=== PATIENT | female | born 1985 | race African-American/Black ===

== ENCOUNTER 2017-12-28 07:38 | Emergency (ER) | payer OTHER, SELFPAY ==
--- OUTSIDE RECORDS SUMMARY | 2017-12-28 07:41 | XMS REPORT | Clinical Summary ---
:1985 Author Organization [facility] Address [address] [place] [id number] Care Team Providers Name Role Phone Asked, No Pcp Primary Care Provider Unavailable Allergies No Known Allergies Current Medications Prescription Sig. Disp. Refills Start Date End Date Status Take 1 tablet by Active vit,[id number] 29 mouth daily. mg iron- 1 mg tablet per tablet Active Problems Not on file Encounters Date Type Specialty Care Team Description 12/14/2017 Hospital Encounter Obstetrics and Gynecology Pj Barajas MD after 12/27/2016 Social History Tobacco Use Types Packs/Day Years Used Date Former Smoker Quit: 07/19/2017 Smokeless Tobacco: Never Used Alcohol Use Drinks/Week oz/Week Comments No Currently Estimated Date of Delivery Comments Yes 04/25/2018 Based on Other Basis Sex Assigned at Date Recorded Not on file Last Filed Vital Signs Vital Sign Reading Time Taken Blood Pressure 112/59 12/14/2017 7:00 PM CDT Pulse 76 12/14/2017 7:00 PM CDT Temperature 37.4 C (99.3 F) 12/14/2017 7:00 PM CDT Respiratory Rate 16 12/14/2017 7:07 PM CDT Oxygen Saturation - - Inhaled Oxygen Concentration - - Weight 64.9 kg (143 lb) 12/14/2017 7:07 PM CDT Height 160 cm (5' 3") 12/14/2017 7:07 PM CDT Body Mass Index 25.33 12/14/2017 7:07 PM CDT Plan of Treatment Date Type Specialty Care Team Description 04/25/2018 Hospital Encounter Obstetrics and Pj Barajas MD Gynecology [address] [place] [id number] Procedures Procedure Name Priority Date/Time Associated Comments Diagnosis GRAM STAIN STAT 12/14/2017 7:00 PM Results for this CDT procedure are in the results section. URINE CULTURE STAT 12/14/2017 7:00 PM Results for this CDT procedure are in the results section. URINALYSIS SCREEN STAT 12/14/2017 6:59 PM Results for this AND MICROSCOPY, WITH CDT procedure are in REFLEX TO CULTURE the results section. after 12/27/2016 Results Gram stain (12/14/2017 7:00 PM) Gram stain result No WBC's [facility] DEPARTMENT OF PATHOLOGY Many Gram positive rods AND GENOMIC MEDICINE Comment: Specimen Information Specimen Source: Urine Specimen Site: Clean catch Specimen Urine Performing Organization Address City/[facility] Phone Number [facility] DEPARTMENT OF PATHOLOGY AND [address] [place] [address] MEDICINE Urine culture (12/14/2017 7:00 PM) Urine culture isolate Mixed Gram positive tony [facility] DEPARTMENT OF 10-3 cfu/ml PATHOLOGY AND GENOMIC (A) MEDICINE Comment: Specimen Information Specimen Source: Urine Specimen Site: Clean catch Specimen Urine Performing Organization Address City/[facility] Phone Number [facility] DEPARTMENT OF PATHOLOGY AND [address] [place] [id number] [facility] MEDICINE Urinalysis screen and microscopy, with reflex to culture (12/14/2017 6:59 PM) Specimen site Clean catch [facility] DEPARTMENT OF PATHOLOGY AND GENOMIC MEDICINE Color, UA Yellow [facility] DEPARTMENT OF PATHOLOGY AND GENOMIC MEDICINE Appearance, UA Sl Cloudy [facility] DEPARTMENT OF PATHOLOGY AND GENOMIC MEDICINE Specific gravity, UA 1.020 1.001 - 1.030 [facility] DEPARTMENT OF PATHOLOGY AND GENOMIC MEDICINE pH, UA 6.0 5.0 - 9.0 [facility] DEPARTMENT OF PATHOLOGY AND GENOMIC MEDICINE Protein, UA Negative Negative [facility] DEPARTMENT OF PATHOLOGY AND GENOMIC MEDICINE Glucose, UA 1+ (A) Negative [facility] DEPARTMENT OF PATHOLOGY AND GENOMIC MEDICINE Ketones, UA Negative Negative [facility] DEPARTMENT OF PATHOLOGY AND GENOMIC MEDICINE Bilirubin, UA Negative Negative [facility] DEPARTMENT OF PATHOLOGY AND GENOMIC MEDICINE Blood, UA Moderate (A) Negative [facility] DEPARTMENT OF PATHOLOGY AND GENOMIC MEDICINE Nitrite, UA Negative Negative [facility] DEPARTMENT OF PATHOLOGY AND GENOMIC MEDICINE Urobilinogen, UA 4.0 (A) <2.0 E.U./dL [facility] DEPARTMENT OF PATHOLOGY AND GENOMIC MEDICINE Leukocyte esterase, UA Moderate (A) Negative [facility] DEPARTMENT OF PATHOLOGY AND GENOMIC MEDICINE Epithelial cells, UA 9 /HPF [facility] DEPARTMENT OF PATHOLOGY AND GENOMIC MEDICINE Round epithelial cells, UA <1 0 - 5 /HPF [facility] DEPARTMENT OF PATHOLOGY AND GENOMIC MEDICINE WBC, UA 3 0 - 4 /HPF [facility] DEPARTMENT OF PATHOLOGY AND GENOMIC MEDICINE RBC, UA 11 (H) 0 - 5 /HPF [facility] DEPARTMENT OF PATHOLOGY AND GENOMIC MEDICINE Bacteria, UA None seen None seen [facility] DEPARTMENT OF PATHOLOGY AND GENOMIC MEDICINE Yeast, UA None seen [facility] DEPARTMENT OF PATHOLOGY AND GENOMIC MEDICINE Yeast with pseudohyphae, UA None seen [facility] DEPARTMENT OF PATHOLOGY AND GENOMIC MEDICINE Calcium oxalate crystals, UA Few [facility] DEPARTMENT OF PATHOLOGY AND GENOMIC MEDICINE Specimen Urine Performing Organization Address City/State/Zipcode Phone Number [facility] DEPARTMENT OF PATHOLOGY [address] [place] [address] AND GENOMIC MEDICINE after 12/27/2016 Insurance Payer Benefit Plan / Group Subscriber ID Type Phone Address [facility]/O BLUE ESSENTIALS xxxxxxxxxxxx O
[2017-12-28] MEDS ORDERED: NA CHLORIDE 0.9% 500 ML ONE (08:15)
[2017-12-28 08:21] LABS: Absolute Monocytes 0.7 K/uL (0.1-1.3); Absolute Neutrophil 8.1 K/uL (1.8-8.0); Basophils % 0.2 % (0-1.3); Eosinophils % 0.4 % (0-4.4); Hematocrit 29.8 % (36.0-45.0); Lymphocytes % 18.2 % (15.3-44.8); MCH 26.9 pg (27.0-35.0); MCV 79.7 fL (80-100); MPV 8.3 fL (7.6-11.3); Monocytes % 6.2 % (3.3-12.3); RBC Red Blood Cell Count 3.74 M/uL (3.86-4.86)
[2017-12-28 08:38] LABS: BUN Blood Urea Nitrogen 8 mg/dL (7-18); Bicarbonate 23 mmol/L (21-32); Glucose Level 87 mg/dL (74-106); Magnesium 1.5 mg/dL (1.8-2.4); Potassium 3.4 mmol/L (3.5-5.1); Sodium Level 137 mmol/L (136-145)
[2017-12-28] MEDS ORDERED: MAGNESIUM SULFATE 1 gm IVPB 1 GM/100 ML BAG IV ONE (09:03)
[2017-12-28] MEDS ORDERED: POTASSIUM CL SA 10 MEQ TAB PO ONE (09:03)
[2017-12-28 09:59] LABS: Urine Blood TRACE (NEG); Urine Glucose NEGATIVE (NEG); Urine Protein NEGATIVE (NEG)
[2017-12-28 10:04] LABS: Urine Bacteria 20-50 /HPF (<20); Urine Culture Reflex Order REFLEXED; Urine RBC <5 /HPF (NONE SEEN)
--- NOTE | 2017-12-28 10:37 | ER ---
Nurse's Notes [facility] Name: Brenda Holbrook Age: 32 yrs Sex: Female : 1985 Arrival Date: 12/28/2017 Time: 07:41 Bed 13 Private MD: Out, [facility] Diagnosis: related conditions, unspecified;Dizziness and giddiness;Weakness-General Presentation: 12/28 07:43 Presenting complaint: Patient states: Woke up this morning at 0400 and felt really rb1 dizzy and weak. Pt. is 23 weeks . Transition of care: patient was not received from another setting of care. Onset of symptoms was December 28, 2017 at 04:00. Risk Assessment: Do you want to hurt yourself or someone else? Patient reports no desire to harm self or others. Initial Sepsis Screen: Does the patient meet any 2 criteria? No. Patient's initial sepsis screen is negative. Does the patient have a suspected source of infection? No. Patient's initial sepsis screen is negative. Care prior to arrival: Medication(s) given: Tylenol, 500 mg. 07:43 Method Of Arrival: Ambulatory rb1 07:43 Acuity: MIKE 3 rb1 Triage Assessment: 07:43 The onset of the patients symptoms was December 28, 2017 at 04:00. General: Appears in rb1 no apparent distress. comfortable, Behavior is calm, cooperative, Denies fever. Pain: Denies pain. Neuro: Level of Consciousness is awake, alert, obeys commands, Oriented to person, place, time, situation, Reports dizziness, weakness Has been getting headaches off and on for the past 3 weeks. Denies having a headache at this time. Neuro: Drainlayer are equal bilaterally Moves all extremities. Gait is steady, Speech is normal, Facial symmetry appears normal, Pupils are PERRLA. Cardiovascular: Capillary refill < 3 seconds is brisk in bilateral fingers. Respiratory: Airway is patent Respiratory effort is even, unlabored, Respiratory pattern is regular, symmetrical. GI: No signs and/or symptoms were reported involving the gastrointestinal system. : No signs and/or symptoms were reported regarding the genitourinary system. Derm: Skin is dry, Skin is normal, Skin temperature is warm. Musculoskeletal: Range of motion: intact in all extremities. 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 - Ebola Screening: : Patient negative for fever greater than or equal to 101.5 degrees Fahrenheit, and additional compatible Ebola Virus Disease symptoms. - Social history:: Smoking status: Patient/guardian denies using tobacco. Screenin:43 Abuse screen: Denies threats or abuse. Nutritional screening: No deficits noted. rb1 Tuberculosis screening: No symptoms or risk factors identified. Fall Risk None identified. Assessment: 07:43 General: See triage assessment. rb1 08:21 Reassessment: Patient appears in no apparent distress at this time. No changes from rb1 previously documented assessment. 09:20 Reassessment: Patient appears in no apparent distress at this time. Patient and/or rb1 family updated on plan of care and expected duration. Pain level reassessed. Patient is alert, oriented x 3, equal unlabored respirations, skin warm/dry/pink. Patient denies pain at this time. 10:20 Reassessment: Patient appears in no apparent distress at this time. No changes from rb1 previously documented assessment. 11:15 Reassessment: Patient appears in no apparent distress at this time. Patient and/or rb1 family updated on plan of care and expected duration. Pain level reassessed. Patient is alert, oriented x 3, equal unlabored respirations, skin warm/dry/pink. Patient states feeling better. Vital Signs: 07:43 BP 129 / 85; Pulse 65; Resp 19; Temp 98.3(O); Pulse Ox 100% on R/A; Weight 72.26 kg rb1 (M); Height 5 ft. 3 in. (160.02 cm) (R); Pain 0/10; 08:11 BP 115 / 62; Pulse 70; Resp 16; Pulse Ox 99% on R/A; dh3 08:13 BP 111 / 71; Pulse 71; Resp 17; Pulse Ox 100% on R/A; dh3 08:15 BP 116 / 75; Pulse 76; Resp 16; Pulse Ox 100% on R/A; dh3 09:15 BP 117 / 74; Pulse 69; Resp 18; Pulse Ox 100% ; rb1 10:15 BP 113 / 59; Pulse 67; Resp 19; Pulse Ox 100% on R/A; rb1 11:15 BP 109 / 70; Pulse 78; Resp 19; Pulse Ox 100% on R/A; rb1 07:43 Body Mass Index 28.22 (72.26 kg, 160.02 cm) rb1 Vitals: 08:21 Heart Tones 129 bpm. rb1 ED Course: 07:41 Patient arrived in ED. sb2 07:42 Out, of Town is Private Physician. sb2 07:43 Carrie Ochoa, RN is Primary Nurse. rb1 07:43 Arm band placed on right wrist. rb1 07:43 Patient has correct armband on for positive identification. Bed in low position. Call rb1 light in reach. Side rails up X 1. Pulse ox on. NIBP on. Warm blanket given. 07:48 Angel Redmond MD is Attending Physician. rn 07:49 Ayan Doshi PA is PHCP. cp 07:53 Triage completed. rb1 08:07 Initial lab(s) drawn, by il, sent to lab. Inserted saline lock: 20 gauge in right dh3 antecubital area, using aseptic technique. Blood collected. 08:35 EKG done, by technical information specialist. reviewed by Ayan CASTELLANO. at1 11:15 No provider procedures requiring assistance completed. IV discontinued, intact, rb1 bleeding controlled, No redness/swelling at site. Pressure dressing applied. Administered Medications: 08:05 Drug: NS 0.9% 500 ml Route: IV; Rate: bolus; Site: right antecubital; rb1 08:40 Follow up: IV Status: Completed infusion rb1 08:42 CANCELLED (Physician Discretion): Potassium Effervescent Tablet 50 mEq PO once; cp dissolve in 4 ounces of water or juice 08:56 Drug: Magnesium Sulfate 1 grams Route: IVPB; Infused Over: 1 hrs; Site: right rb1 antecubital; 10:00 Follow up: Response: No adverse reaction; IV Status: Completed infusion rb1 08:56 Drug: Potassium Chloride 20 mEq Route: PO; rb1 09:22 Follow up: Response: No adverse reaction rb1 09:04 Not Given (Physician Discretion): Potassium Chloride 20 mEq PO once cp Outcome: 10:37 Discharge ordered by . cp 11:15 Patient left the ED. rb1 11:15 Discharged to home ambulatory. rb1 11:15 Condition: stable 11:15 Discharge instructions given to patient, Instructed on discharge instructions, follow up and referral plans. Demonstrated understanding of instructions, follow-up care, Prescriptions given X none Signatures: Angel Redmond MD MD rn Yue Bose, corrugator operator helper EKG Tat1 Ayan Doshi PA PA cp Barber, Rebecca, RN RN rb1 Lizet Gonsalves 3 Onelia Verma sb2 Corrections: (The following items were deleted from the chart) :25 11:25 Patient left the ED. rb1 rb1
--- NOTE | 2017-12-28 10:37 | EDPHYS ---
Physician Documentation [facility] Name: Brenda Holbrook Age: 32 yrs Sex: Female : 1985 Arrival Date: 12/28/2017 Time: 07:41 Bed 13 Private MD: Out, [facility], [facility] ED Physician Angel Redmond HPI: 12/28 07:59 This 32 yrs old Black Female presents to ER via Ambulatory with complaints of Weakness, cp Dizziness. 07:59 The patient presents to the emergency department with weakness of the entire body, cp generalized weakness, that is mild. 07:59 Onset: The symptoms/episode began/occurred this morning. Associated signs and symptoms: cp Pertinent positives: dizziness, blurred vision, Pertinent negatives: fever, headache, chest pain, abdominal pain. Patient's baseline: Neuro: alert and fully oriented, Motor: no deficits, Ambulation: walks without assistance, Speech: normal. Current symptoms: general weakness, dizziness. Patient reports she is 23 weeks . Denies vaginal bleeding, denies vaginal discharge, denies leakage of fluid. 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 - Ebola Screening: : Patient negative for fever greater than or equal to 101.5 degrees Fahrenheit, and additional compatible Ebola Virus Disease symptoms. - Social history:: Smoking status: Patient/guardian denies using tobacco. ROS: 08:05 Constitutional: Negative for body aches, chills, fever, poor PO intake. cp 08:05 ENT: Negative for injury, pain, and discharge. cp 08:05 Eyes: Positive for blurry vision, Negative for discharge, pain, photophobia, redness, vision loss. 08:05 Cardiovascular: Negative for chest pain, edema, palpitations. 08:05 Respiratory: Negative for cough, shortness of breath, wheezing. 08:05 Abdomen/GI: Negative for abdominal pain, nausea, vomiting, and diarrhea, constipation, anorexia, black/tarry stool, rectal bleeding. 08:05 Back: Negative for pain at rest, pain with movement, radiated pain. 08:05 : Negative for urinary symptoms, flank pain, vaginal bleeding, vaginal discharge. 08:05 Skin: Negative for cellulitis, rash. 08:05 Neuro: Positive for dizziness, weakness, Negative for altered mental status, gait disturbance, headache, speech changes, syncope. 08:05 All other systems are negative. Exam: 08:10 Constitutional: The patient appears in no acute distress, alert, awake, cp non-diaphoretic, non-toxic, well developed, well nourished. 08:10 Head/Face: Normocephalic, atraumatic. Eyes: Pupils equal round and reactive to light, cp extra-ocular motions intact. Lids and lashes normal. Conjunctiva and sclera are non-icteric and not injected. Cornea within normal limits. Periorbital areas with no swelling, redness, or edema. ENT: Nares patent. No nasal discharge, no septal abnormalities noted. Tympanic membranes are normal and external auditory canals are clear. Oropharynx with no redness, swelling, or masses, exudates, or evidence of obstruction, uvula midline. Mucous membranes moist. Neck: Trachea midline, no thyromegaly or masses palpated, and no cervical lymphadenopathy. Supple, full range of motion without nuchal rigidity, or vertebral point tenderness. No Meningismus. Chest/axilla: Normal chest wall appearance and motion. Nontender with no deformity. No lesions are appreciated. 08:10 Cardiovascular: Rate: normal, Rhythm: regular, Pulses: Pulses are 2+ in right radial artery and left radial artery. Heart sounds: murmur, not appreciated, Edema: is not appreciated. 08:10 Respiratory: the patient does not display signs of respiratory distress, Respirations: normal, no use of accessory muscles, no retractions, no splinting, no tachypnea, labored breathing, is not present, Breath sounds: are clear throughout, no decreased breath sounds, no stridor, no wheezing. 08:10 Abdomen/GI: Inspection: gravid appearance, Bowel sounds: active, all quadrants, Palpation: abdomen is soft and non-tender, in all quadrants, rebound tenderness, is not appreciated, voluntary guarding, is not appreciated, involuntary guarding, is not appreciated. 08:10 Back: pain, is absent, ROM is normal. 08:10 Skin: cellulitis, is not appreciated, no rash present. 08:10 Neuro: Orientation: to person, place \T\ time. Mentation: lucid, able to follow commands, Cerebellar function: is grossly normal, Motor: moves all fours, strength is normal, Sensation: is normal, Gait: is steady. 08:38 ECG was reviewed by the Attending Physician. Vital Signs: 07:43 BP 129 / 85; Pulse 65; Resp 19; Temp 98.3(O); Pulse Ox 100% on R/A; Weight 72.26 kg rb1 (M); Height 5 ft. 3 in. (160.02 cm) (R); Pain 0/10; 08:11 BP 115 / 62; Pulse 70; Resp 16; Pulse Ox 99% on R/A; dh3 08:13 BP 111 / 71; Pulse 71; Resp 17; Pulse Ox 100% on R/A; dh3 08:15 BP 116 / 75; Pulse 76; Resp 16; Pulse Ox 100% on R/A; dh3 09:15 BP 117 / 74; Pulse 69; Resp 18; Pulse Ox 100% ; rb1 10:15 BP 113 / 59; Pulse 67; Resp 19; Pulse Ox 100% on R/A; rb1 11:15 BP 109 / 70; Pulse 78; Resp 19; Pulse Ox 100% on R/A; rb1 07:43 Body Mass Index 28.22 (72.26 kg, 160.02 cm) rb1 MDM: 07:48 Patient medically screened. rn 10:35 Data reviewed: vital signs, nurses notes, lab test result(s), EKG. cp 10:35 Test interpretation: by ED physician or midlevel provider: ECG. Counseling: I had a cp detailed discussion with the patient and/or guardian regarding: the historical points, exam findings, and any diagnostic results supporting the discharge/admit diagnosis, lab results. Response to treatment: the patient's symptoms have markedly improved after treatment, VSS. Patient reports she is feeling better, and as a result, I will discharge patient. 12/28 07:59 Order name: CBC with Diff; Complete Time: 08:39 cp 12/28 08:39 Interpretation: Normal except: RBC 3.74; HGB 10.1; HCT 29.8; MCV 79.7; MCH 26.9; REBECA% cp 75.0; NEUT A 8.1. 12/28 07:59 Order name: BMP; Complete Time: 08:39 cp 12/28 08:40 Interpretation: Normal except: K 3.4; CRE 0.50; CA 8.4. cp 12/28 07:59 Order name: Magnesium; Complete Time: 08:39 cp 12/28 08:40 Interpretation: Abnormal: MG 1.5. cp 12/28 09:31 Order name: Urine Microscopic Only; Complete Time: 10:24 dh3 12/28 10:24 Interpretation: Normal except: UWBC 5-10; UBACT 20-50; SQEPI 5-10. cp 12/28 09:37 Order name: Urine Dipstick--Ancillary (enter results); Complete Time: 10:24 eb 12/28 09:37 Order name: Urine --Ancillary (enter results); Complete Time: 10:24 eb 12/28 07:56 Order name: FHT's; Complete Time: 08:21 cp 12/28 07:56 Order name: EKG; Complete Time: 07:57 cp 12/28 10:06 Order name: Urine Culture EDMS 12/28 07:56 Order name: Orthostatics; Complete Time: 08:18 cp 12/28 07:56 Order name: EKG - Nurse/Tech; Complete Time: 11:32 cp 12/28 07:59 Order name: Urine Dipstick-Ancillary (obtain specimen); Complete Time: 11:32 cp 12/28 07:59 Order name: Urine Test (obtain specimen); Complete Time: 11:32 cp 12/28 07:59 Order name: IV; Complete Time: 08:18 cp EC:38 Rate is 65 beats/min. Rhythm is regular. ME interval is normal. QRS interval is normal. cp QT interval is normal. T waves are Inverted in lead III. Interpreted by me. Reviewed by me. Administered Medications: 08:05 Drug: NS 0.9% 500 ml Route: IV; Rate: bolus; Site: right antecubital; rb1 08:40 Follow up: IV Status: Completed infusion rb1 08:42 CANCELLED (Physician Discretion): Potassium Effervescent Tablet 50 mEq PO once; cp dissolve in 4 ounces of water or juice 08:56 Drug: Magnesium Sulfate 1 grams Route: IVPB; Infused Over: 1 hrs; Site: right rb1 antecubital; 10:00 Follow up: Response: No adverse reaction; IV Status: Completed infusion rb1 08:56 Drug: Potassium Chloride 20 mEq Route: PO; rb1 09:22 Follow up: Response: No adverse reaction rb1 09:04 Not Given (Physician Discretion): Potassium Chloride 20 mEq PO once cp Disposition: 13:00 Co-signature as Attending Physician, Angel Redmond MD. rn Disposition: 12/28/17 10:37 Discharged to Home. Impression: related conditions, unspecified, Dizziness and giddiness, Weakness - General. - Condition is Stable. - Discharge Instructions: Dizziness, and Anemia, Weakness, Second Trimester of , [id number]. - Medication Reconciliation Form, Thank You Letter, Antibiotic Education, Prescription Opioid Use, Work release form form. - Follow up: Private Physician; When: 1 - 2 days; Reason: Recheck today's complaints. - Problem is new. - Symptoms have improved. Signatures: Dispatcher [employer] EDWA Angel Redmond MD MD rn Ayan Doshi PA PA cp Barber, Rebecca, RN RN rb1 Corrections: (The following items were deleted from the chart) 08:40 08:39 Normal except: K 3.4; CRE 0.50. cp cp 08:42 08:41 Potassium Effervescent Tablet 50 mEq PO once; dissolve in 4 ounces of water or cp juice ordered. cp 11:25 10:37 12/28/2017 10:37 Discharged to Home. Impression: related conditions, rb1 unspecified; Dizziness and giddiness; Weakness - General. Condition is Stable. Forms are Medication Reconciliation Form, Thank You Letter, Antibiotic Education, Prescription Opioid Use. Follow up: Private Physician; When: 1 - 2 days; Reason: Recheck today's complaints. Problem is new. Symptoms have improved. cp
--- NOTE | 2017-12-28 11:04 | EKG ---
Test Date: 2017-12-28 Test Time: 08:30:54 [employer]: TARYN MEASUREMENT RESULTS: Intervals: Rate: 65 WY: 142 QRSD: 82 QT: 410 QTc: 426 [place]: P: 27 W[place]: 142 QRS: 22 T: 23 INTERPRETIVE STATEMENTS: Normal sinus rhythm Normal ECG Compared to ECG 09/05/2016 11:33:57 No significant changes Electronically Signed On 12-28-17 11:03:25 CDT by Bart Wong
== END 2017-12-28 11:25 | disposition home or self-care (01) ==
LOC: ER 07:38
DX: R53.1 Weakness (principal); Z3A.23 23 weeks gestation of pregnancy
CPT/HCPCS: 36415; 80048; 81003; 81015; 81025; 83735; 85025; 87086; 87088; 93005; 96361; 96365; 99284; J3475